=== PATIENT | female | born 1970 | race Caucasian/White ===

== ENCOUNTER → 2021-10-04 | Outpatient (CLI) | payer BC | LOC: MAMMO 08:42 | PROVIDERS: ATTEND Internal Medicine | DX: Z12.31 Encounter for screening mammogram for malignant neoplasm of breast (principal); J41.0 Simple chronic bronchitis | CPT/HCPCS: 71046; 77067 ==

== ENCOUNTER → 2021-10-31 | Outpatient (CLI) | payer BC | LOC: MAMMO 09:19 | PROVIDERS: ATTEND Internal Medicine | DX: R92.8 Other abnormal and inconclusive findings on diagnostic imaging of breast (principal); N95.0 Postmenopausal bleeding | CPT/HCPCS: 76830; 76856 ==

== ENCOUNTER → 2024-08-24 | Outpatient (REF) | payer BC | LOC: MAMMO 09:54 | PROVIDERS: ATTEND Internal Medicine | DX: Z12.31 Encounter for screening mammogram for malignant neoplasm of breast (principal) | CPT/HCPCS: 77067 ==